=== PATIENT | female | born 1975 | race Caucasian/White ===

== ENCOUNTER 2024-06-16 11:15 | Outpatient (RCR) | payer BC, SELFPAY | END 2024-10-14 23:59 | disposition home or self-care (01) | PROVIDERS: Visit Provider Physician Assistant | DX: M79.671 Pain in right foot (principal); G89.29 Other chronic pain; M54.16 Radiculopathy, lumbar region; Z51.89 Encounter for other specified aftercare | CPT/HCPCS: 97110; 97140; 97162; 97535 ==